=== PATIENT | female | born 1990 | race African-American/Black ===

== ENCOUNTER 2021-06-28 10:29 | Outpatient (CLI) | payer OTHER ==
--- NOTE | 2021-06-28 18:15 | Ultrasound Report ---
ULTRASOUND BREAST RIGHT LIMITED, 06/28/2021 CLINICAL INFORMATION / INDICATION: RIGHT CHEST WALL LUMP. TECHNIQUE: Targeted ultrasound evaluation was performed of the area of interest. COMPARISON: Prior mammogram 09/27/2020 and right breast ultrasounds 02/14/2021, 04/17/2021, and FINDINGS: Targeted ultrasound of the area of palpable concern in the right breast 12:00 position located 14 cm from the nipple is unremarkable. No suspicious cystic or solid lesion identified. Of note, on prior o utside ultrasound performed 06/06/2021, they documented an oval circumscribed hyperechoic nodule in th is location measuring up to 1.6 x 0.5 x 1.3 cm. This nodule was parallel. This was not reproducible o n today's examination. IMPRESSION: 1. No suspicious sonographic abnormality is seen at the site of palpable concern in the right breast, therefore clinical correlation is recommended. 2. The oval circumscribed hyperechoic nodule documented in this location on recent prior ultrasound i s not reproducible on today's study. This finding may have either represented a benign lipoma or a pr ominent fat lobule. Follow up recommendation: Unless otherwise clinically indicated, recommend patient return to routine screening mammography at age 40. BI-RADS Category 1: Negative. A normal or "negative" report should not preclude biopsy or follow-up of a clinically suspicious find ing. Signer Name: Emily Carlos MD Signed: 06/28/2021 6:10 PM Workstation Name: [id number]
== END 2021-06-28 10:30 | disposition home or self-care (01) ==
LOC: SPVWC 10:29
PROVIDERS: ATTEND Surgery
DX: N63.10 Unspecified lump in the right breast, unspecified quadrant (principal); R92.8 Other abnormal and inconclusive findings on diagnostic imaging of breast